=== PATIENT | female | born 1970 | race Hispanic/Latino ===

== ENCOUNTER 2018-04-07 09:09 | Outpatient (CLI) | payer OTHER ==
--- NOTE | 2018-04-07 12:43 | ULT ---
LEFT BREAST ULTRASOUND: HISTORY: Left breast mass. FINDINGS: Correlation is made with the mammogram of the same date. Comparison is made with the left breast ult rasound of 05/30/2013. The large lobulated mass on the mammogram corresponds to a large solid lobulated mass on ultrasound w ith flow. 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 IMPRESSION: BIRADS category 4 - suspicious abnormality. Surgical consultation for excision is recommended. Discussed in person with the patient at 10:30 a.m. CODE CR POS: CECILE
== END 2018-04-07 09:10 | disposition home or self-care (01) ==
LOC: BICMAMMO 09:09
PROVIDERS: ATTEND Obstetrics & Gynecology
DX: N63.20 Unspecified lump in the left breast, unspecified quadrant (principal)
CPT/HCPCS: 77066; G0279

== ENCOUNTER 2018-05-21 06:32 | Outpatient (CLI) | payer OTHER ==
[2018-05-21 15:27] LABS: #Eosinphils 0.2 thou/uL (0.0-0.7); #Lymphocytes 1.8 thou/uL (1.20-3.40); #Monocytes 0.6 thou/uL (0.11-0.59); #Neutrophils 4.8 thou/uL (1.40-6.50); %Basophils 0.5 % (0.0-1.0); %Eosinophils 2.8 % (0.0-10.0); %Lymphocytes 24.3 % (21.0-51.0); %Monocytes 7.7 % (0.0-10.0); %Neutrophils 64.8 % (42.0-75.0); Hemoglobin 12.9 g/dL (12.0-16.0); Mean Corpuscular Hemoglobin 28.6 pg (27.0-31.0); Mean Corpuscular Volume 83.9 fL (78.0-98.0); Mean Platelet Volume 7.5 fL (7.4-10.4); Platelet Count 278 thou/uL (130-400); Red Blood Cell (RBC) Count 4.51 mill/uL (4.20-5.40); White Blood Cell (WBC) Count 7.5 thou/uL (4.8-10.8)
[2018-05-21 15:49] LABS: Anion Gap 10 mmol/L (10-20); BUN (Urea Nitrogen) 10 mg/dL (7.0-18.7); Calc. Creatinine Clearance 0 mL/min (70-130); Calcium 8.8 mg/dL (7.8-10.44); Carbon Dioxide 27 mmol/L (22-29); Chloride 104 mmol/L (98-107); Estimated GFR-MDRD 81; Glucose 116 mg/dL (70-105); Potassium 3.7 mmol/L (3.5-5.1); Sodium 137 mmol/L (136-145)
== END 2018-05-21 06:33 | disposition home or self-care (01) ==
LOC: LABBT 06:32
PROVIDERS: ATTEND Surgery
DX: Z01.812 Encounter for preprocedural laboratory examination (principal); N63.20 Unspecified lump in the left breast, unspecified quadrant
CPT/HCPCS: 80048; 85025

== ENCOUNTER 2018-05-25 08:00 | Inpatient (IN) | payer OTHER ==
[2018-05-21 14:39] VITALS: BMI 33.4
[2018-05-25] MEDS ORDERED: CEFAZOLIN 2 GM/50 ML BAG ONE (08:22)
[2018-05-25] MEDS ORDERED: Midazolam HCl 2 mg/2 ml Vial ONE (09:20)
[2018-05-25] MEDS ORDERED: Fentanyl 250 MCG/5 ML VIAL ONE (10:17)
[2018-05-25] MEDS ORDERED: Promethazine HCl 25 MG/ML VIAL IM PRN ×3 (11:10→17:05)
[2018-05-25] MEDS ORDERED: Promethazine HCl 25 MG/ML VIAL SLOW IVP PRN (11:10)
[2018-05-25] MEDS ORDERED: HYDROmorphone 2 MG/ML VIAL SLOW IVP PRN (11:10)
[2018-05-25] MEDS ORDERED: Ondansetron HCl/PF 4 MG/2 ML Vial IVP PRN (11:10)
[2018-05-25] MEDS ORDERED: Ketorolac Tromethamine 30 MG/ML VIAL ONE (12:15)
[2018-05-25] MEDS ORDERED: Dexamethasone 20 MG/5 ML VIAL ONE (12:15)
[2018-05-25] MEDS ORDERED: ePHEDrine/0.9% NaCl/PF SYRINGE 50 mg/10 ml ONE (12:15)
[2018-05-25] MEDS ORDERED: Glycopyrrolate 0.2 MG/ML 5 ML SYRINGE ONE (12:15)
[2018-05-25] MEDS ORDERED: PROPOFOL 200 MG/20 ML VIAL ONE (12:15)
[2018-05-25] MEDS ORDERED: Ondansetron PF 4 MG/2 ML Vial ONE (12:15)
[2018-05-25] MEDS ORDERED: Lidocaine 1% PF 5 ML VIAL ONE (12:15)
[2018-05-25] MEDS ORDERED: Rocuronium Bromide 10 MG/ML (10ML VIAL) ONE (12:15)
[2018-05-25] MEDS ORDERED: Metoclopramide HCl 10 MG/2 ML VIAL ONE (12:15)
[2018-05-25] MEDS ORDERED: Naloxone HCl 0.4 mg/ml Vial IV PRN (13:42)
[2018-05-25] MEDS ORDERED: diphenhydrAMINE 50 MG/ML VIAL IVP PRN (13:42)
[2018-05-25] MEDS ORDERED: diphenhydrAMINE 25 MG CAP PO PRN (13:42)
[2018-05-25] MEDS ORDERED: Zolpidem Tartrate 5 MG TAB PO PRN (13:42)
[2018-05-25] MEDS ORDERED: diphenhydrAMINE 50 MG/ML VIAL IM PRN (13:42)
[2018-05-25] MEDS ORDERED: fentaNYL Citrate/PF 2,000 MCG in Sodium Chloride 0.9% 60 ML IV PRN (13:42)
[2018-05-25] MEDS ORDERED: Ondansetron PF 4 MG/2 ML Vial IVP PRN ×2 (13:42→17:05)
[2018-05-25] MEDS ORDERED: Communication Order-Pharmacy FS SCH (13:45)
[2018-05-25] MEDS: D5 1/2 NS w/20 mEq KCL 1,000 ML IV SCH (17:00)
[2018-05-25] MEDS ORDERED: Dextrose 5% in Water 1,000 ML IV PRN (17:05)
[2018-05-25] MEDS ORDERED: Dextrose 50% Abboject 50 ML SYRINGE SLOW IVP PRN (17:05)
[2018-05-25] MEDS ORDERED: hydrALAZINE 20 MG/ML VIAL SLOW IVP PRN (17:05)
[2018-05-25] MEDS: Famotidine 20 MG TAB PO SCH (20:16)
[2018-05-26] MEDS: D5 1/2 NS w/20 mEq KCL 1,000 ML IV SCH (04:21)
[2018-05-26 04:28] VITALS: TEMP 98.1
[2018-05-26 09:09] VITALS: BP 120/70
[2018-05-26] MEDS: Famotidine 20 MG TAB PO SCH (09:36)
== END 2018-05-26 12:38 | disposition home or self-care (01) | DRG 585 ==
LOC: SDC 08:00 → EEVIPCON 15:00 → SURG B 17:01
PROVIDERS: ADMIT Surgery; ATTEND Surgery
PROC: 0HBU0ZZ Excision of Left Breast, Open Approach (ICD-10-PCS; principal; 2018-05-25)
DX: D24.9 Benign neoplasm of unspecified breast (principal); N63.20 Unspecified lump in the left breast, unspecified quadrant
CPT/HCPCS: 88307; 88309; J1100; J1885; J2001; J2250; J2405; J2704; J2765; J3010; J7050

== ENCOUNTER 2019-10-29 18:40 | Emergency (ER) | payer OTHER, SELFPAY ==
[2019-10-30 12:38] LABS: SARS-CoV-2 MS2 Positive; SARS-CoV-2 N Gene Positive; SARS-CoV-2 S Gene Positive; SARS-CoV-2 orf1ab Positive
== END 2019-10-29 19:10 | disposition home or self-care (01) ==
LOC: ERS 18:40
DX: U07.1 COVID-19 (principal)
CPT/HCPCS: 87635; 99283; U0003

== ENCOUNTER 2019-12-15 12:47 | Emergency (ER) | payer SELFPAY | END 2019-12-15 13:56 | disposition home or self-care (01) | LOC: ERS 12:47 | DX: R20.2 Paresthesia of skin (principal); I10 Essential (primary) hypertension; E78.5 Hyperlipidemia, unspecified; Z79.899 Other long term (current) drug therapy ==